=== PATIENT | female | born 1940 | race African-American/Black ===

== ENCOUNTER 2017-10-13 17:01 | Inpatient (IN) | payer MEDICARE, BC ==
[~2017-10-13] VITALS: Ht 162.6 cm; Wt 72.6 kg
[2017-10-13] MEDS ORDERED: Sodium Chloride 500ML 500 ML IV ONE (17:21)
[2017-10-13 17:22] VITALS: BP 162/66
[2017-10-13] MEDS ORDERED: AMLODIPINE BESYL5 MG ORAL (17:25)
[2017-10-13] MEDS ORDERED: MELOXICAM7.5 MG PO (17:25)
[2017-10-13] MEDS ORDERED: METOPROLOL SUCC50 MG ORAL (17:25)
[2017-10-13] MEDS ORDERED: TRESIBA FL200 UNIT/1 SQ (17:25)
[2017-10-13] MEDS ORDERED: NAMENDA XR28 MG PO (17:25)
[2017-10-13] MEDS ORDERED: ASPIRIN325 MG ORAL (17:25)
[2017-10-13] MEDS ORDERED: CEREFOLIN TABL1 EACH PO (17:25)
[2017-10-13] MEDS ORDERED: LIPITOR10 MG ORAL (17:25)
[2017-10-13] MEDS ORDERED: UNOBMED (17:25)
[2017-10-13] MEDS ORDERED: NESINA25 MG PO (17:25)
[2017-10-13] MEDS ORDERED: Morphine Sulfate 2mg/ml Inj IVP ONE (17:30)
[2017-10-13 18:00] VITALS: BP 146/53
[2017-10-13 18:09] LABS: BASOPHILS % (AUTO) 1.2 % (0.0-2.0); EOSINOPHILS % (AUTO) 2.5 % (0.0-3.0); HEMATOCRIT 36.2 % (37.0-47.0); LYMPHOCYTES % (AUTO) 30.2 % (20.0-45.0); MEAN CORPUSCULAR VOLUME 92 FL (80-99); MONOCYTES % (AUTO) 9.7 % (1.0-10.0); NEUTROPHILS % (AUTO) 56.4 % (45.0-75.0); PLATELET COUNT 200 K/UL (150-450); RED BLOOD COUNT 3.95 M/UL (4.20-5.40); RED CELL DISTRIBUTION WIDTH 11.8 % (11.6-14.8); WHITE BLOOD COUNT 7.1 K/UL (4.8-10.8)
[2017-10-13 18:14] LABS: APPEARANCE,URINE SLIGHTLY CLOUDY; BILIRUBIN, URINE NEGATIVE (NEGATIVE); COLOR,URINE PALE YELLOW; GLUCOSE, URINE (UA) NEGATIVE (NEGATIVE); KETONES,URINE NEGATIVE (NEGATIVE); LEUKOCYTE ESTERASE ,URINE NEGATIVE (NEGATIVE); NITRITE,URINE POSITIVE (NEGATIVE); PH,URINE 7 (4.5-8.0); PROTEIN,URINE NEGATIVE (NEGATIVE); UROBILINOGEN,URINE NORMAL MG/DL (0.0-1.0)
[2017-10-13 18:21] LABS: ANION GAP 7 mmol/L (5-15); BLOOD UREA NITROGEN 34 mg/dL (7-18); CALCIUM 10.5 MG/DL (8.5-10.1); CARBON DIOXIDE 30 MMOL/L (21-32); CHLORIDE 104 MMOL/L (98-107); POTASSIUM 4.6 MMOL/L (3.5-5.1); SODIUM 141 MMOL/L (136-145)
[2017-10-13 18:34] LABS: ALANINE AMINOTRANSFERASE 27 U/L (12-78); ALBUMIN 3.8 G/DL (3.4-5.0); ALKALINE PHOSPHATASE 74 U/L (46-116); ASPARTATE AMINO TRANSFERASE 26 U/L (15-37); BILIRUBIN,TOTAL 0.2 MG/DL (0.2-1.0); CKMB 3.1 NG/ML (0.0-3.6); CREATINE KINASE 150 U/L (26-308)
[2017-10-13 19:00] VITALS: BP 143/55
--- NOTE | 2017-10-13 19:09 | Emergency Room Report ---
History of Present Illness General Chief Complaint: Chest Pain Source: Patient, Family Member, Medical Record Present Illness HPI 77-year-old female presents to ED for evaluation. Per EMS patient complaining of chest pain. Patient comes from [facility]. Patient noting chest pain which started yesterday also complaining of back pain. Chest pain was left-sided, sharp, 7/10, nonradiating. Also complaining of lower back pain to the right. Per EMS patient was denying any chest pain during assessment. Was given aspirin. Denies any chest pain here. Ex- at bedside states that patient was recently discharged from [facility] for similar chest pain complaint. Admitted for overnight observation. Denies shortness of breath. Denies cough. Denies fevers or chills. No other aggravating relieving factors. Denies any other associated symptoms Allergies: Coded Allergies: No Known Allergies (Unverified , 10/13/17) Patient History Past Medical History: none, DM, HTN, dementia Past Surgical History: none, pacemaker Pertinent Family History: none Social History: Denies: smoking, alcohol use, drug use Now: No Immunizations: UTD Reviewed Nursing Documentation: PMH: Agreed, PSxH: Agreed Nursing Documentation-PMH Past Medical History: No History, Except For Hx Cardiac Problems: Yes - Alzheimer's disease Hx Hypertension: Yes Hx Pacemaker: Yes Hx Diabetes: Yes Review of Systems All Other Systems: negative except mentioned in HPI Physical Exam Vital Signs Date Time Temp Pulse Resp B/P (MAP) Pulse Ox O2 Delivery O2 Flow Rate FiO2 10/13/17 17:09 97.1 80 16 220/110 97 Room Air 97.2 Sp02 EP Interpretation: reviewed, normal General Appearance: no apparent distress, alert, GCS 15, non-toxic Head: normocephalic, atraumatic Eyes: bilateral eye normal inspection, bilateral eye PERRL ENT: hearing grossly normal, normal pharynx, no angioedema, normal voice Neck: full range of motion, supple/symm/no masses Respiratory: chest non-tender, lungs clear, normal breath sounds, speaking full sentences Cardiovascular #1: regular rate, rhythm, no edema Cardiovascular #2: 2+ carotid (R), 2+ carotid (L), 2+ radial (R), 2+ radial (L) , 2+ dorsalis pedis (R), 2+ dorsalis pedis (L) Gastrointestinal: normal bowel sounds, non tender, soft, non-distended, no guarding, no rebound Rectal: deferred Genitourinary: normal inspection, no CVA tenderness Musculoskeletal: back normal, gait/station normal, normal range of motion, non- tender Neurologic: alert, oriented x3, responsive, motor strength/tone normal, sensory intact, speech normal Psychiatric: judgement/insight normal, memory normal, mood/affect normal, no suicidal/homicidal ideation Reflexes: 3+ bicep (R), 3+ bicep (L), 3+ tricep (R), 3+ tricep (L), 3+ knee (R) , 3+ knee (L) Skin: normal color, no rash, warm/dry, well hydrated Lymphatic: no adenopathy Medical Decision Making Diagnostic Impression: Primary Impression: ACS (acute coronary syndrome) Additional Impression: UTI (urinary tract infection) Qualified Codes: N39.0 - Urinary tract infection, site not specified ER Course Hospital Course 77-year-old female presents ED complaining of chest pain. Resolved upon arrival Differential diagnoses include: WI/unstable angina, contusion, muscle strain, PTX, rib fracture Clinical course Patient placed on stretcher. on ruling technician. After initial history and physical I ordered labs, EKG, chest x-ray labs reviewed- no leukcytosis, hb/hct stable, electrolytes ok, trop negative, UA + bacteria EKG - atrial paced, no acute ischemic changes interpreted by me Chest x-ray- no acute process, pacemaker Antibiotics given. discussed findings with patient and family. The pain does appear muscular. Patient was admitted proximately tended to [facility] for ACS rule out. However patient has significant risk factors I believe should be admitted for ACS rule out Case discussed with Dr. Lloyd and he agreed to accept the patient to his service for further care and support I. I feel this is a highly complex case requiring extensive working including EKG/Rhythm strip, Xray/CT/US, Blood/urine lab work, repeat exams while in ED, and administration of strong opiates/narcotics for pain control, admission to hospital or close patient follow up. Diagnosis - ACS, UTI admitted to telemetry in serious condition Labs Test 10/13/17 17:55 White Blood Count 7.1 K/UL (4.8-10.8) Red Blood Count 3.95 M/UL (4.20-5.40) Hemoglobin 12.0 G/DL (12.0-16.0) Hematocrit 36.2 % (37.0-47.0) Mean Corpuscular Volume 92 FL (80-99) Mean Corpuscular Hemoglobin 30.4 PG (27.0-31.0) Mean Corpuscular Hemoglobin Concent 33.1 G/DL (32.0-36.0) Red Cell Distribution Width 11.8 % (11.6-14.8) Platelet Count 200 K/UL (150-450) Mean Platelet Volume 10.2 FL (6.5-10.1) Neutrophils (%) (Auto) 56.4 % (45.0-75.0) Lymphocytes (%) (Auto) 30.2 % (20.0-45.0) Monocytes (%) (Auto) 9.7 % (1.0-10.0) Eosinophils (%) (Auto) 2.5 % (0.0-3.0) Basophils (%) (Auto) 1.2 % (0.0-2.0) Urine Color Pale yellow Urine Appearance Slightly cloudy Urine pH 7 (4.5-8.0) Urine Specific [place] 1.010 (1.005-1.035) Urine Protein Negative (NEGATIVE) Urine Glucose (UA) Negative (NEGATIVE) Urine Ketones Negative (NEGATIVE) Urine Occult Blood Negative (NEGATIVE) Urine Nitrite Positive (NEGATIVE) Urine Bilirubin Negative (NEGATIVE) Urine Urobilinogen Normal MG/DL (0.0-1.0) Urine Leukocyte Esterase Negative (NEGATIVE) Urine RBC 0-2 /HPF (0 - 2) Urine WBC 0-2 /HPF (0 - 2) Urine Squamous Epithelial Cells Few /LPF (NONE/OCC) Urine Bacteria Many /HPF (NONE) Sodium Level 141 MMOL/L (136-145) Potassium Level 4.6 MMOL/L (3.5-5.1) Chloride Level 104 MMOL/L (98-107) Carbon Dioxide Level 30 MMOL/L (21-32) Anion Gap 7 mmol/L (5-15) Blood Urea Nitrogen 34 mg/dL (7-18) Creatinine 1.0 MG/DL (0.55-1.30) Estimat Glomerular Filtration Rate mL/min (>60) Glucose Level 145 MG/DL (74-106) Calcium Level 10.5 MG/DL (8.5-10.1) Total Bilirubin 0.2 MG/DL (0.2-1.0) Aspartate Amino Transf (AST/SGOT) 26 U/L (15-37) Alanine Aminotransferase (ALT/SGPT) 27 U/L (12-78) Alkaline Phosphatase 74 U/L (46-116) Total Creatine Kinase 150 U/L (26-308) Creatine Kinase MB 3.1 NG/ML (0.0-3.6) Creatine Kinase MB Relative Index 2.0 Troponin I 0.000 ng/mL (0.000-0.056) Pro-B-Type Natriuretic Peptide 90 pg/mL (0-125) Total Protein 7.6 G/DL (6.4-8.2) Albumin 3.8 G/DL (3.4-5.0) Globulin 3.8 g/dL Albumin/Globulin Ratio 1.0 (1.0-2.7) EKG Diagnostic Results Rate: normal Rhythm: other - paced rhythm ST Segments: no acute changes ASA given to the pt in ED: No - given by ems Rhythm Strip Diag. Results EP Interpretation: yes Rhythm: no PVC's, no ectopy, other - atrial paced Chest X-Ray Diagnostic Results Chest X-Ray Diagnostic Results : Chest X-Ray Ordered: Yes # of Views/Limited/Complete: 1 View Indication: Chest Pain EP Interpretation: Yes Interpretation: no consolidation, no effusion, no pneumothorax, no acute cardiopulmonary disease, other - pacemaker Impression: No acute disease Last Vital Signs Date Time Temp Pulse Resp B/P (MAP) Pulse Ox O2 Delivery O2 Flow Rate FiO2 10/13/17 18:30 97.9 10/13/17 18:00 64 12 146/53 100 Room Air Status: improved Disposition: ADMITTED INPATIENT Condition: Serious Referrals: NON PHYSICIAN (PCP) YAS GARCIA M.D. Oct 13, 2017 19:09
[2017-10-13] MEDS ORDERED: Albuterol/Ipratropium 3ml neb HHN PRN (19:15)
[2017-10-13] MEDS ORDERED: Morphine Sulfate 2mg/ml Inj IVP PRN (19:15)
[2017-10-13] MEDS ORDERED: Miralax 17gm pkt ORAL PRN (19:15)
[2017-10-13] MEDS ORDERED: dilTIAZem HCl 25mg/5ml Inj IV PRN (19:15)
[2017-10-13] MEDS ORDERED: Enalaprilat 2.5mg/2ml Inj IV PRN (19:15)
[2017-10-13] MEDS ORDERED: Ketorolac 30mg Inj IV PRN (19:15)
[2017-10-13] MEDS ORDERED: Nitroglycerin Subl 0.4mg tab SL PRN (19:30)
[2017-10-13 20:05] VITALS: BP 133/61
[2017-10-13] MEDS: NovoLOG Insulin Flexpen SUBQ SCH (21:00)
[2017-10-13] MEDS: Heparin 5000 units/ml inj SUBQ SCH (22:05)
[2017-10-14] VITALS: BP 140/60
[2017-10-14 04:00] VITALS: BP 127/61
[2017-10-14] MEDS: NovoLOG Insulin Flexpen SUBQ SCH ×4 (06:11→21:00)
[2017-10-14] MEDS: Heparin 5000 units/ml inj SUBQ SCH ×3 (06:20→22:06)
[2017-10-14 08:00] VITALS: BP 153/66
--- NOTE | 2017-10-14 08:33 | Diagnostic Imaging Report ---
Indication: Chest pain Technique: One view of the chest Comparison: none Findings: The lungs and pleural spaces are clear. There is a left chest pacemaker. Normal heart size Impression: No acute process
[2017-10-14] MEDS: Aspirin Baby 81mg ORAL SCH (08:47)
[2017-10-14] MEDS: Metoprolol Succinate XL 50mg tab ORAL SCH (08:48)
[2017-10-14 08:55] LABS: EOSINOPHILS % (AUTO) 2.4 % (0.0-3.0); HEMATOCRIT 32.7 % (37.0-47.0); HEMOGLOBIN 10.9 G/DL (12.0-16.0); LYMPHOCYTES % (AUTO) 28.8 % (20.0-45.0); MEAN CORPUSCULAR VOLUME 92 FL (80-99); MONOCYTES % (AUTO) 7.1 % (1.0-10.0); NEUTROPHILS % (AUTO) 60.8 % (45.0-75.0); PLATELET COUNT 205 K/UL (150-450); RED BLOOD COUNT 3.55 M/UL (4.20-5.40); WHITE BLOOD COUNT 6.1 K/UL (4.8-10.8)
[2017-10-14 09:17] LABS: CHOLESTEROL 98 MG/DL (< 200); HDL CHOLESTEROL 55 MG/DL (40-60); TRIGLYCERIDES < 15 MG/DL (30-150)
[2017-10-14] MEDS ORDERED: ALPRAZOLAM0.025 GM MC (10:30)
[2017-10-14 12:00] VITALS: BP 120/56
[2017-10-14] MEDS ORDERED: Nitroglycerin Subl 0.4mg tab SL PRN (12:45)
--- NOTE | 2017-10-14 12:58 | History and Physical ---
History of Present Illness General Date patient seen: Oct 14, 2017 Time patient seen: 11:00 Reason for Hospitalization: Chest Pain Present Illness HPI 77 y/d female with PMH of DM, HTN< Alzheimer dementia, presented with chest and lower right sided back pain Chest pain started a day before, left-sided, sharp, 7/10, nonradiating. Also complaining of lower back pain to the right, more [place] flank pain. Patient was given aspirin by paramedics . Ex- at bedside states that patient was recently discharged from [facility] for similar chest pain complaint, where she was admitted for overnight observation. Denies shortness of breath. Denies cough, congestion Denies fevers or chills. Workup in ED revealed stable VS troponin negative ECG with AV pacing, no acute ischemic changes CXR no acute CP pathology, + evidence of pacemaker UA with evidence of UTI patient was admitted with CP r/o ACS, UTI Allergies: Coded Allergies: No Known Allergies (Unverified , 10/13/17) Medication History Scheduled Alogliptin Benzoate (Nesina), 25 MG PO DAILY, (Reported) Amlodipine Besylate* (Amlodipine Besylate*), 5 MG ORAL BID, (Reported) Aspirin* (Aspirin*), 325 MG ORAL DAILY, (Reported) Atorvastatin Calcium* (Lipitor*), 10 MG ORAL DAILY, (Reported) Insulin Degludec (Tresiba Flextouch U-200), 12 UNIT SQ DAILY, (Reported) Meloxicam* (Meloxicam*), 7.5 MG PO BID, (Reported) Memantine Hcl (Namenda Xr), 28 MG PO DAILY, (Reported) Metoprolol Succinate* (Metoprolol Succinate*), 50 MG ORAL DAILY, (Reported) Vit B12/Lmefolate Ca/Vit B6/B2 (Cerefolin Tablet), 1 EACH PO DAILY, (Reported) Miscellaneous Medications Alprazolam (Alprazolam), 0.025 GM MC, (Reported) Patient History Healthcare decision maker N Resuscitation status Full Code Advanced Directive on File No Review of Systems Constitutional: Reports: weakness Eye: Reports: no symptoms ENT: Reports: no symptoms Respiratory: Reports: no symptoms Cardiovascular: Reports: see HPI, other - HTN Gastrointestinal: Reports: no symptoms, constipation Genitourinary: Reports: frequency Musculoskeletal: Reports: back pain Psychiatric: Reports: other - Alzheimer dementia Endocrine: Reports: other - DM Physical Exam General Appearance: no apparent distress, alert Lines, tubes and drains: peripheral HEENT: normocephalic, atraumatic, anicteric Neck: non-tender, supple Respiratory/Chest: lungs clear, no respiratory distress, no accessory muscle use Cardiovascular/Chest: normal rate, regular rhythm - AV paced , no JVD, pacemaker/AICD - Left chest pacemaker Abdomen: normal bowel sounds, non tender, soft Extremities: non-tender, no calf tenderness Neurologic: alert, responsive Last 24 Hour Vital Signs Date Time Temp Pulse Resp B/P (MAP) Pulse Ox O2 Delivery O2 Flow Rate FiO2 10/14/17 08:48 59 153/66 10/14/17 08:47 59 153/66 10/14/17 08:00 60 10/14/17 08:00 97.0 59 20 153/66 100 97.0 10/14/17 04:00 97.9 59 19 127/61 98 97.9 10/14/17 03:53 60 10/14/17 00:00 97.7 63 20 140/60 99 Room Air 97.7 10/13/17 23:56 60 10/13/17 22:03 65 154/78 10/13/17 20:05 98.0 61 12 133/61 100 Room Air 98.0 10/13/17 19:39 97.9 62 12 143/55 100 Room Air 97.9 10/13/17 19:00 62 12 143/55 100 Room Air 10/13/17 18:30 97.9 10/13/17 18:00 64 12 146/53 100 Room Air 10/13/17 17:59 97.9 10/13/17 17:22 Room Air 10/13/17 17:22 97.9 74 16 162/66 98 Room Air 97.9 10/13/17 17:09 97.1 80 16 220/110 97 Room Air 97.2 Intake and Output 10/13/17 10/14/17 19:00 07:00 Intake Total 500 ml Output Total 100 ml Balance 400 ml Intake IV Total 500 ml Output Urine Total 100 ml # Voids 1 3 Laboratory Tests Test 10/13/17 17:55 10/14/17 08:05 White Blood Count 7.1 K/UL (4.8-10.8) 6.1 K/UL (4.8-10.8) Red Blood Count 3.95 M/UL (4.20-5.40) L 3.55 M/UL (4.20-5.40) L Hemoglobin 12.0 G/DL (12.0-16.0) 10.9 G/DL (12.0-16.0) L Hematocrit 36.2 % (37.0-47.0) L 32.7 % (37.0-47.0) L Mean Corpuscular Volume 92 FL (80-99) 92 FL (80-99) Mean Corpuscular Hemoglobin 30.4 PG (27.0-31.0) 30.7 PG (27.0-31.0) Mean Corpuscular Hemoglobin Concent 33.1 G/DL (32.0-36.0) 33.3 G/DL (32.0-36.0) Red Cell Distribution Width 11.8 % (11.6-14.8) 12.0 % (11.6-14.8) Platelet Count 200 K/UL (150-450) 205 K/UL (150-450) Mean Platelet Volume 10.2 FL (6.5-10.1) H 10.6 FL (6.5-10.1) H Neutrophils (%) (Auto) 56.4 % (45.0-75.0) 60.8 % (45.0-75.0) Lymphocytes (%) (Auto) 30.2 % (20.0-45.0) 28.8 % (20.0-45.0) Monocytes (%) (Auto) 9.7 % (1.0-10.0) 7.1 % (1.0-10.0) Eosinophils (%) (Auto) 2.5 % (0.0-3.0) 2.4 % (0.0-3.0) Basophils (%) (Auto) 1.2 % (0.0-2.0) 1.0 % (0.0-2.0) Urine Color Pale yellow Urine Appearance Slightly cloudy Urine pH 7 (4.5-8.0) Urine Specific [place] 1.010 (1.005-1.035) Urine Protein Negative (NEGATIVE) Urine Glucose (UA) Negative (NEGATIVE) Urine Ketones Negative (NEGATIVE) Urine Occult Blood Negative (NEGATIVE) Urine Nitrite Positive (NEGATIVE) H Urine Bilirubin Negative (NEGATIVE) Urine Urobilinogen Normal MG/DL (0.0-1.0) Urine Leukocyte Esterase Negative (NEGATIVE) Urine RBC 0-2 /HPF (0 - 2) Urine WBC 0-2 /HPF (0 - 2) Urine Squamous Epithelial Cells Few /LPF (NONE/OCC) Urine Bacteria Many /HPF (NONE) H Sodium Level 141 MMOL/L (136-145) Potassium Level 4.6 MMOL/L (3.5-5.1) Chloride Level 104 MMOL/L (98-107) Carbon Dioxide Level 30 MMOL/L (21-32) Anion Gap 7 mmol/L (5-15) Blood Urea Nitrogen 34 mg/dL (7-18) H Creatinine 1.0 MG/DL (0.55-1.30) Estimat Glomerular Filtration Rate mL/min (>60) Glucose Level 145 MG/DL (74-106) H Calcium Level 10.5 MG/DL (8.5-10.1) H Total Bilirubin 0.2 MG/DL (0.2-1.0) Aspartate Amino Transf (AST/SGOT) 26 U/L (15-37) Alanine Aminotransferase (ALT/SGPT) 27 U/L (12-78) Alkaline Phosphatase 74 U/L (46-116) Total Creatine Kinase 150 U/L (26-308) Creatine Kinase MB 3.1 NG/ML (0.0-3.6) Creatine Kinase MB Relative Index 2.0 Troponin I 0.000 ng/mL (0.000-0.056) 0.017 ng/mL (0.000-0.056) Pro-B-Type Natriuretic Peptide 90 pg/mL (0-125) Total Protein 7.6 G/DL (6.4-8.2) Albumin 3.8 G/DL (3.4-5.0) Globulin 3.8 g/dL Albumin/Globulin Ratio 1.0 (1.0-2.7) Prothrombin Time 10.1 SEC (9.30-11.50) Prothromb Time International Ratio 1.0 (0.9-1.1) Activated Partial Thromboplast Time 28 SEC (23-33) C-Reactive Protein, Quantitative 0.6 mg/dL (0.00-0.90) Triglycerides Level < 15 MG/DL (30-150) L Cholesterol Level 98 MG/DL (< 200) LDL Cholesterol 45 mg/dL (<100) HDL Cholesterol 55 MG/DL (40-60) Cholesterol/HDL Ratio 1.8 (3.3-4.4) L Thyroid Stimulating Hormone (TSH) 1.179 uiU/mL (0.358-3.740) Microbiology Date/Time Source Procedure Growth Status 10/13/17 17:55 Urine,Clean Catch Urine Culture - Preliminary Gram Negative Bacillus 1 Resulted Height (Feet): 5 Height (Inches): 4.00 Weight (Pounds): 160 Medications Current Medications Medications (Trade) Dose Ordered Sig/Joel Route PRN Reason Start Time Stop Time Status Last Admin Dose Admin Acetaminophen (Tylenol) 650 mg Q4H PRN ORAL FEVER 10/13/17 19:15 11/12/17 19:14 Albuterol/ Ipratropium (Albuterol/ Ipratropium) 3 ml EVERY 4 HOURS PRN HHN Shortness of Breath 10/13/17 19:15 10/18/17 19:14 Amlodipine Besylate (Norvasc) 5 mg Q12HR ORAL 10/13/17 21:00 11/12/17 20:59 10/14/17 08:47 Aspirin (ASA) 162 mg DAILY ORAL 10/14/17 09:00 11/13/17 08:59 10/14/17 08:47 Dextrose (Dextrose 50%) STAT PRN IV Hypoglycemia 10/13/17 19:15 11/12/17 19:14 Diltiazem HCl (Cardizem) 10 mg EVERY HOUR PRN IV heart rate more than 120, 10/13/17 19:15 11/12/17 19:14 Enalaprilat (Vasotec) 2.5 mg EVERY 6 HOURS PRN IV sbp more than 160 10/13/17 19:15 11/12/17 19:14 Heparin Sodium (Porcine) (Heparin 5000 units/ml) 5,000 units EVERY 8 HOURS SUBQ 10/13/17 22:00 11/12/17 21:59 10/14/17 06:20 Insulin Aspart (NovoLOG) BEFORE MEALS AND HS SUBQ 10/13/17 21:00 11/12/17 20:59 10/14/17 12:18 Ketorolac Tromethamine (Toradol 30mg) 30 mg Q6HR PRN IV moderate pain ( 4-6) 10/13/17 19:15 10/18/17 19:14 Metoprolol Succinate (Toprol XL) 50 mg DAILY ORAL 10/14/17 09:00 11/13/17 08:59 10/14/17 08:48 Morphine Sulfate (Morphine Sulfate) 2 mg EVERY 4 HOURS PRN IVP severe Pain (Pain Scale 7-10) 10/13/17 19:15 10/20/17 19:14 Nitroglycerin (Ntg) 0.4 mg Q5MIN X 3 DOSES PRN SL Prn Chest Pain 10/13/17 19:30 11/12/17 19:29 Ondansetron HCl (Zofran) 4 mg Q6H PRN IVP Nausea & Vomiting 10/13/17 19:15 11/12/17 19:14 Pantoprazole (Protonix) 40 mg DAILY ORAL 10/14/17 09:00 11/13/17 08:59 10/14/17 08:47 Polyethylene Glycol (Miralax) 17 gm DAILYPRN PRN ORAL Constipation 10/13/17 19:15 11/12/17 19:14 Temazepam (Restoril) 15 mg HSPRN PRN ORAL Insomnia 10/13/17 19:15 10/20/17 19:14 Assessment/Plan Assessment/Plan ASSESSMENT chest pain r/o ACS HTN urgency DM pacemaker UTI with GNB Alzheimer dementia PLAN OF CARE tele serial troponin ( first two negative) ECG with AV pacing, no acute ischemic changes ECHO with pEF 55-60% and RVSP of 28 cardio eval pending ASA BB lipid panel stable TSH WNL BP management with BB and CCB optimize further as needed BS management with SS of insulin pain management Morphine, Nitro prn DVT GI prophylaxis bowel regimen abx fup with final urine cx ; urine cx + GNB case discussed and evaluated by supervising physician Javier Ventura)Adrienne NP Oct 14, 2017 12:58
--- NOTE | 2017-10-14 15:04 | Cardiology Report ---
APPROVED REPORT EKG Measurement Heart [id number] Abnormal ECG Dual-Chamber Pacemaker. 100% V paced beats
[2017-10-14] MEDS: cefTRIAXone 1 GM in NS 55 ML IVPB SCH (15:36)
[2017-10-14 16:00] VITALS: BP 143/61
--- NOTE | 2017-10-14 16:15 | Cardiology Report ---
APPROVED REPORT EXAM: Two-dimensional and M-mode echocardiogram with Doppler and color Doppler. INDICATION Left ventricular function M-Mode DIMENSIONS IVSd0.7 (0.7-1.1cm)Left Atrium (MM)2.6 (1.6-4.0cm) LVDd3.9 (3.5-5.6cm)Aortic Root2.4 (2.0-3.7cm) PWd0.8 (0.7-1.1cm)Aortic Cusp Exc.1.5 (1.5-2.0cm) LVDs2.0 (2.5-4.0cm) PWs1.0 cm Normal left ventricular chamber size, systolic function and wall motion. Left ventricular ejection fraction estimated to be 55-60%. No evidence of left ventricular hypertrophy. No evidence of pericardial or pleural effusion. All other cardiac chamber sizes are within normal limits. Focal aortic valve sclerosis with adequate cusp excursion. Normal mitral valve leaflets with normal excursion. Mild mitral annulus and aortic root calcification. Pulmonic valve not well visualized. Normal tricuspid valve structure. IVC is normal in size and collapsible with respiration. Probable pacemaker wire present in the right side chambers. A color flow and spectral Doppler study was performed and revealed: No aortic regurgitation. Mild mitral regurgitation. Mitral diastolic velocities suggest reduced left ventricular relaxation c/w diastolic dysfunction grade 1. Mild tricuspid regurgitation. Tricuspid systolic velocities suggests peak right ventricular systolic pressure of 28 mmHg
[2017-10-14 20:00] VITALS: BP 128/59
[2017-10-15] VITALS: BP 135/65
[2017-10-15 04:00] VITALS: BP 133/64
[2017-10-15] MEDS: Heparin 5000 units/ml inj SUBQ SCH ×3 (06:00→21:30)
[2017-10-15] MEDS: NovoLOG Insulin Flexpen SUBQ SCH ×4 (06:30→21:29)
[2017-10-15 09:00] VITALS: BP 127/57
[2017-10-15] MEDS: Aspirin Baby 81mg ORAL SCH (09:54)
[2017-10-15] MEDS: Metoprolol Succinate XL 50mg tab ORAL SCH (09:55)
[2017-10-15 12:00] VITALS: BP 124/50
--- NOTE | 2017-10-15 13:24 | Pulmonology Progress Note ---
Assessment/Plan Problems: (1) UTI (urinary tract infection) (2) Alzheimer's dementia (3) ACS (acute coronary syndrome) Assessment/Plan check urine cultures echo reviewed cardio consult pending Subjective ROS Limited/Unobtainable: No Constitutional: Reports: no symptoms HEENT: Repors: no symptoms Respiratory: Reports: no symptoms Allergies: Coded Allergies: No Known Allergies (Unverified , 10/13/17) Objective Last 24 Hour Vital Signs Date Time Temp Pulse Resp B/P (MAP) Pulse Ox O2 Delivery O2 Flow Rate FiO2 10/15/17 09:55 62 127/57 10/15/17 09:55 62 127/57 10/15/17 09:00 98.1 62 18 127/57 98 Room Air 98.1 10/15/17 08:02 66 18 Room Air 21 10/15/17 04:00 60 10/15/17 04:00 97.3 60 20 133/64 97.3 10/15/17 00:00 98.6 71 20 135/65 97 Room Air 98.6 10/15/17 00:00 60 10/14/17 21:00 66 128/59 10/14/17 20:00 68 10/14/17 20:00 97.0 66 20 128/59 96 Room Air 97.0 10/14/17 19:30 64 20 Room Air 21 10/14/17 16:00 98.1 65 20 143/61 96 Room Air 98.1 10/14/17 16:00 64 Intake and Output 10/14/17 10/15/17 19:00 07:00 Intake Total 472 ml 236 ml Output Total 1850 ml Balance 472 ml -1614 ml Intake Oral 472 ml 236 ml Output Urine Total 1850 ml # Voids 2 6 # Bowel Movements 1 1 General Appearance: WD/WN HEENT: normocephalic, atraumatic Respiratory/Chest: chest wall non-tender, lungs clear Breasts: no masses Cardiovascular: normal peripheral pulses Abdomen: normal bowel sounds, soft, non tender Genitourinary: normal external genitalia Extremities: no cyanosis Skin: no rash, no ulcers Neurologic/Psychiatric: no motor/sensory deficits, alert, normal mood/affect Lymphatic: no groin adenopathy Microbiology Date/Time Source Procedure Growth Status 10/13/17 17:55 Urine,Clean Catch Urine Culture - Preliminary Gram Negative Bacillus 1 Resulted Current Medications Medications (Trade) Dose Ordered Sig/Joel Route PRN Reason Start Time Stop Time Status Last Admin Dose Admin Acetaminophen (Tylenol) 650 mg Q4H PRN ORAL FEVER 10/13/17 19:15 11/12/17 19:14 Albuterol/ Ipratropium (Albuterol/ Ipratropium) 3 ml EVERY 4 HOURS PRN HHN Shortness of Breath 10/13/17 19:15 10/18/17 19:14 Amlodipine Besylate (Norvasc) 5 mg Q12HR ORAL 10/13/17 21:00 11/12/17 20:59 10/15/17 09:55 Aspirin (ASA) 162 mg DAILY ORAL 10/14/17 09:00 11/13/17 08:59 10/15/17 09:54 Ceftriaxone Sodium 1 gm/ Sodium Chloride 55 ml @ 110 mls/hr Q24H IVPB 10/14/17 14:00 10/21/17 13:59 10/14/17 15:36 Dextrose (Dextrose 50%) STAT PRN IV Hypoglycemia 10/13/17 19:15 11/12/17 19:14 Diltiazem HCl (Cardizem) 10 mg EVERY HOUR PRN IV heart rate more than 120, 10/13/17 19:15 11/12/17 19:14 Enalaprilat (Vasotec) 2.5 mg EVERY 6 HOURS PRN IV sbp more than 160 10/13/17 19:15 11/12/17 19:14 Heparin Sodium (Porcine) (Heparin 5000 units/ml) 5,000 units EVERY 8 HOURS SUBQ 10/13/17 22:00 11/12/17 21:59 10/15/17 06:00 Insulin Aspart (NovoLOG) BEFORE MEALS AND HS SUBQ 10/13/17 21:00 11/12/17 20:59 10/15/17 12:24 Ketorolac Tromethamine (Toradol 30mg) 30 mg Q6HR PRN IV moderate pain ( 4-6) 10/13/17 19:15 10/18/17 19:14 Metoprolol Succinate (Toprol XL) 50 mg DAILY ORAL 10/14/17 09:00 11/13/17 08:59 10/15/17 09:55 Morphine Sulfate (Morphine Sulfate) 2 mg EVERY 4 HOURS PRN IVP severe Pain (Pain Scale 7-10) 10/13/17 19:15 10/20/17 19:14 10/15/17 07:18 Nitroglycerin (Ntg) 0.4 mg Q5MIN X 3 DOSES PRN SL Prn Chest Pain 10/13/17 19:30 11/12/17 19:29 Ondansetron HCl (Zofran) 4 mg Q6H PRN IVP Nausea & Vomiting 10/13/17 19:15 11/12/17 19:14 Pantoprazole (Protonix) 40 mg DAILY ORAL 10/14/17 09:00 11/13/17 08:59 10/15/17 09:54 Polyethylene Glycol (Miralax) 17 gm DAILYPRN PRN ORAL Constipation 10/13/17 19:15 11/12/17 19:14 Temazepam (Restoril) 15 mg HSPRN PRN ORAL Insomnia 10/13/17 19:15 10/20/17 19:14 BRITTANY IRIZARRY Oct 15, 2017 13:24
[2017-10-15] MEDS: cefTRIAXone 1 GM in NS 55 ML IVPB SCH (14:43)
[2017-10-15] MEDS ORDERED: NS 275ml ONE (15:32)
[2017-10-15] MEDS ORDERED: Tubing IV Secondary IV ONE (15:32)
[2017-10-15] MEDS: Levofloxacin 250mg/D5W 50ml IVPB SCH ×2 (15:51→16:11)
[2017-10-15 16:00] VITALS: BP 134/55
--- NOTE | 2017-10-15 16:18 | Cardiology Progress Note ---
Assessment/Plan Assessment/Plan [id number] Objective Last 24 Hour Vital Signs Date Time Temp Pulse Resp B/P (MAP) Pulse Ox O2 Delivery O2 Flow Rate FiO2 10/15/17 12:00 98.4 60 18 124/50 99 Room Air 98.4 10/15/17 12:00 60 10/15/17 09:55 62 127/57 10/15/17 09:55 62 127/57 10/15/17 09:00 98.1 62 18 127/57 98 Room Air 98.1 10/15/17 08:02 66 18 Room Air 21 10/15/17 08:00 63 10/15/17 04:00 60 10/15/17 04:00 97.3 60 20 133/64 97.3 10/15/17 00:00 98.6 71 20 135/65 97 Room Air 98.6 10/15/17 00:00 60 10/14/17 21:00 66 128/59 10/14/17 20:00 68 10/14/17 20:00 97.0 66 20 128/59 96 Room Air 97.0 10/14/17 19:30 64 20 Room Air 21 Intake and Output 10/14/17 10/15/17 19:00 07:00 Intake Total 472 ml 236 ml Output Total 1850 ml Balance 472 ml -1614 ml Intake Oral 472 ml 236 ml Output Urine Total 1850 ml # Voids 2 6 # Bowel Movements 1 1 Microbiology Date/Time Source Procedure Growth Status 10/13/17 17:55 Urine,Clean Catch Urine Culture - Preliminary Gram Negative Bacillus 1 Resulted VENITA SOTELO Oct 15, 2017 16:18
[2017-10-15 20:00] VITALS: BP 142/72
[2017-10-16] VITALS: BP 140/70
[2017-10-16 04:00] VITALS: BP 128/68
--- NOTE | 2017-10-16 04:00 | Consultation ---
DATE OF CONSULTATION: 10/15/2017 CARDIOLOGY CONSULTATION CONSULTING PHYSICIAN: Yonatan Yusuf M.D. REFERRING PHYSICIAN: Shell Lloyd M.D. REASON FOR REFERRAL: Chest pain. HISTORY OF PRESENT ILLNESS: This is an elderly female, who is a resident of a convalescent facility. Apparently, the patient was recently at [facility] not too long ago. She was discharged on 10/05/2017 for episodes of chest pain that she was hospitalized there. She was seen at [facility] with manager documentation and eventually her own environmental monitoring technician saw her at that time, felt that the pain was related to musculoskeletal. The patient was discharged back to the convalescent facility and she even followed up, as I understand, with the environmental monitoring technician, Dr. Orlin Dodd in the office in the past few days. She comes in because of basically same pain that she had before, but also pain in her lower back that radiates down her left leg. She tells me left leg, the emergency room physician noticed right leg, a note to EMS. Per EMS, the patient was denying any chest pain during their assessment. The patient was given some aspirin though. She denied any chest pain to the emergency room physician and she denies any chest pain to me at this time after her initial pre-admission chest pains. She has had a difficult time to explain. She thinks that she has some problem with the swallowing of food. Nevertheless, she does not have any PND. No orthopnea. No palpitations. She does walk some. She does not get chest pain with ambulation and she is chest pain free at the present time. PAST MEDICAL HISTORY: According to the [facility] records is history of recent left-sided chest pain, felt to be musculoskeletal and noncardiac, essential hypertension, diabetes mellitus, COPD, dementia, nephrolithiasis, and permanent pacemaker implantation. She has had a cystoscopy, ureteroscopy, ureteral stent placement, history of permanent pacemaker implantation in 2014, tonsillectomy. ALLERGIES: She is allergic to cat and pollen. She denies any allergies to medications here. SOCIAL HISTORY: She does not have a history of smoking or alcohol. She lives at [facility] at this time apparently and she is ambulatory at the facility. REVIEW OF SYSTEMS: GASTROINTESTINAL: She denies. GENITOURINARY: She denies. PULMONARY: She denies. CONSTITUTIONAL: She denies. NEUROLOGIC: She feels that there is some fogginess to her head that she thinks is related to her brain. PHYSICAL EXAMINATION: GENERAL: Shows to be elderly female, rather slow to communicate, but does communicate. NECK: Supple. No jugular venous distention. LUNGS: Clear to auscultation and percussion. CARDIAC: S1 is normal. S2 is normal. Regular rate and rhythm. No heaves. No thrills. No gallops. No rubs are noted. ABDOMEN: Soft and nontender. Positive bowel sounds. EXTREMITIES: There is no clubbing, cyanosis, nor is there any edema. NEUROLOGICAL: She is awake, alert, and responsive. Chest wall is tender and seems to be reproducing the pain that she has been experiencing since before. LABORATORY AND DIAGNOSTIC DATA: Her white count is 6.1, hemoglobin 10.9, and platelet count of 205. Sodium is 141, potassium 4.2, chloride 104, bicarb 30, BUN of 34, creatinine 1.0, glucose of 145, and calcium 10.5. Troponins are negative. Pro-natriuretic peptide is only 90 and triglycerides are less than 15 with a total cholesterol of 98, LDL of 45, and HDL of 55. TSH of 1.79. INR of 1. PTT of 28. Urinalysis is fairly unremarkable. Her chest x-ray showed no acute processes. She had a venous duplex study of the lower extremities that showed deep venous system patent bilaterally. No evidence of thrombus within the vessels. She had an echocardiogram that showed an ejection fraction of 55% to 60%. Normal function and wall motion by the pacemaker wire noted in the right side. No significant valvular regurgitation or mild diastolic relaxation abnormality. No other significant abnormality. Her electrocardiogram showed sinus rhythm with ventricular paced rhythm and a direct comparison with my records does not appear to be any change. ASSESSMENT AND PLAN: 1. Musculoskeletal chest pain. 2. History of hypertension. 3. Diabetes mellitus. 4. History of permanent pacemaker implantation. 5. History of dementia. Dr. Lloyd, this patient was seen in cardiac consultation. The patient's cardiac enzymes are all negative. She does not have any chest pain at this time. She has chest wall tenderness on palpation that seems to reproduce her pain. Her wall motion on the echocardiogram is negative. A chest x-ray is negative. Her EKG is paced, but appears not to be changed. I do not see any reason for her to have any more further cardiac workup as an inpatient. She is supposed to follow up with her own environmental monitoring technician, Dr. Orlin Dodd as is scheduled. The patient is concerned about the possibility of a fogginess that may be caused by her brain. Her vital signs appeared to be quite normal with blood pressure most recently 127/57 with heart rate of 62 and temperature 98.4 degrees. From a cardiac point of view, she can be discharged when appropriate as per yourself. Yonatan Yusuf M.D. DR: Adriana JOB#: [id number] CC:
[2017-10-16] MEDS: Heparin 5000 units/ml inj SUBQ SCH ×2 (06:23→12:58)
[2017-10-16] MEDS: NovoLOG Insulin Flexpen SUBQ SCH ×3 (06:30→16:23)
[2017-10-16] MEDS: Aspirin Baby 81mg ORAL SCH (08:01)
[2017-10-16] MEDS: Metoprolol Succinate XL 50mg tab ORAL SCH (08:02)
[2017-10-16 08:11] LABS: BASOPHILS % (AUTO) 0.8 % (0.0-2.0); EOSINOPHILS % (AUTO) 2.5 % (0.0-3.0); HEMATOCRIT 35.1 % (37.0-47.0); HEMOGLOBIN 11.7 G/DL (12.0-16.0); LYMPHOCYTES % (AUTO) 29.7 % (20.0-45.0); MEAN CORPUSCULAR VOLUME 93 FL (80-99); MONOCYTES % (AUTO) 6.6 % (1.0-10.0); NEUTROPHILS % (AUTO) 60.4 % (45.0-75.0); PLATELET COUNT 218 K/UL (150-450); RED BLOOD COUNT 3.79 M/UL (4.20-5.40); RED CELL DISTRIBUTION WIDTH 11.9 % (11.6-14.8); WHITE BLOOD COUNT 7.2 K/UL (4.8-10.8)
[2017-10-16 08:28] LABS: ALANINE AMINOTRANSFERASE 21 U/L (12-78); ALBUMIN 3.3 G/DL (3.4-5.0); ALBUMIN/GLOBULIN RATIO 0.9 (1.0-2.7); ALKALINE PHOSPHATASE 54 U/L (46-116); ANION GAP 8 mmol/L (5-15); ASPARTATE AMINO TRANSFERASE 19 U/L (15-37); BILIRUBIN,TOTAL 0.4 MG/DL (0.2-1.0); BLOOD UREA NITROGEN 23 mg/dL (7-18); CALCIUM 9.9 MG/DL (8.5-10.1); CARBON DIOXIDE 28 MMOL/L (21-32); CHLORIDE 106 MMOL/L (98-107); PHOSPHORUS 3.2 MG/DL (2.5-4.9); POTASSIUM 4.2 MMOL/L (3.5-5.1); SODIUM 142 MMOL/L (136-145)
[2017-10-16 11:03] VITALS: BP 130/72
[2017-10-16 12:07] VITALS: BP 121/71
--- NOTE | 2017-10-16 12:37 | Neurology Progress Note ---
Interim History Interim History ROS Limited/Unobtainable: No Objective Physical Exam Last Vital Signs Date Time Temp Pulse Resp B/P (MAP) Pulse Ox O2 Delivery O2 Flow Rate FiO2 10/16/17 12:07 97.2 62 18 121/71 98 Room Air 97.2 10/16/17 06:47 21 Laboratory Tests Test 10/15/17 19:30 10/16/17 07:40 Troponin I 0.000 ng/mL (0.000-0.056) White Blood Count 7.2 K/UL (4.8-10.8) Red Blood Count 3.79 M/UL (4.20-5.40) L Hemoglobin 11.7 G/DL (12.0-16.0) L Hematocrit 35.1 % (37.0-47.0) L Mean Corpuscular Volume 93 FL (80-99) Mean Corpuscular Hemoglobin 31.0 PG (27.0-31.0) Mean Corpuscular Hemoglobin Concent 33.4 G/DL (32.0-36.0) Red Cell Distribution Width 11.9 % (11.6-14.8) Platelet Count 218 K/UL (150-450) Mean Platelet Volume 9.7 FL (6.5-10.1) Neutrophils (%) (Auto) 60.4 % (45.0-75.0) Lymphocytes (%) (Auto) 29.7 % (20.0-45.0) Monocytes (%) (Auto) 6.6 % (1.0-10.0) Eosinophils (%) (Auto) 2.5 % (0.0-3.0) Basophils (%) (Auto) 0.8 % (0.0-2.0) Sodium Level 142 MMOL/L (136-145) Potassium Level 4.2 MMOL/L (3.5-5.1) Chloride Level 106 MMOL/L (98-107) Carbon Dioxide Level 28 MMOL/L (21-32) Anion Gap 8 mmol/L (5-15) Blood Urea Nitrogen 23 mg/dL (7-18) H Creatinine 1.0 MG/DL (0.55-1.30) Estimat Glomerular Filtration Rate mL/min (>60) Glucose Level 140 MG/DL (74-106) H Calcium Level 9.9 MG/DL (8.5-10.1) Phosphorus Level 3.2 MG/DL (2.5-4.9) Magnesium Level 1.8 MG/DL (1.8-2.4) Total Bilirubin 0.4 MG/DL (0.2-1.0) Aspartate Amino Transf (AST/SGOT) 19 U/L (15-37) Alanine Aminotransferase (ALT/SGPT) 21 U/L (12-78) Alkaline Phosphatase 54 U/L (46-116) Total Protein 6.8 G/DL (6.4-8.2) Albumin 3.3 G/DL (3.4-5.0) L Globulin 3.5 g/dL Albumin/Globulin Ratio 0.9 (1.0-2.7) L Impression/Recommendations Recommendations # [id number] PATRICA BRICENO Oct 16, 2017 12:37
[2017-10-16] MEDS: cefTRIAXone 1 GM in NS 55 ML IVPB SCH (12:55)
--- NOTE | 2017-10-16 15:15 | Pulmonology Progress Note ---
Assessment/Plan Problems: (1) UTI (urinary tract infection) (2) Alzheimer's dementia (3) ACS (acute coronary syndrome) Assessment/Plan check urine cultures echo reviewed cardio consult appreciated neuro consult appreciated dc with close f/u with the primary Subjective ROS Limited/Unobtainable: No Constitutional: Reports: no symptoms HEENT: Repors: no symptoms Respiratory: Reports: no symptoms Allergies: Coded Allergies: No Known Allergies (Unverified , 10/13/17) Objective Last 24 Hour Vital Signs Date Time Temp Pulse Resp B/P (MAP) Pulse Ox O2 Delivery O2 Flow Rate FiO2 10/16/17 12:07 97.2 62 18 121/71 98 Room Air 97.2 10/16/17 11:43 60 10/16/17 11:03 97.2 60 22 130/72 98 Room Air 97.2 10/16/17 08:02 64 133/59 10/16/17 08:02 64 133/59 10/16/17 07:41 66 10/16/17 06:47 60 16 Room Air 21 10/16/17 04:00 97.2 60 22 128/68 98 Room Air 97.2 10/16/17 04:00 62 10/16/17 00:00 70 10/16/17 00:00 97.5 70 18 140/70 98 Room Air 97.5 10/15/17 21:28 70 142/72 10/15/17 20:15 61 18 Room Air 21 10/15/17 20:00 68 10/15/17 20:00 97.8 60 20 142/72 98 Room Air 97.8 10/15/17 16:00 69 10/15/17 16:00 98.6 61 18 134/55 98 Room Air 98.6 Intake and Output 10/15/17 10/16/17 19:00 07:00 Intake Total 480 ml Balance 480 ml Intake Oral 240 ml Other 240 ml # Voids 3 # Bowel Movements 1 1 Objective General Appearance: WD/WN, Lines, tubes and drains: peripheral HEENT: normocephalic, atraumatic Neck: non-tender, normal alignment, supple Respiratory/Chest: chest wall non-tender, lungs clear, normal breath sounds Breasts: no masses Cardiovascular/Chest: normal peripheral pulses, normal rate Abdomen: normal bowel sounds, non tender Genitourinary/Rectal: normal genital exam, normal rectal exam Extremities: normal range of motion, non-tender Skin Exam: normal pigmentation 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 Complete 10/13/17 17:55 Urine,Clean Catch Urine Culture - Preliminary Gram Negative Bacillus 1 Resulted 10/13/17 20:00 Rectum VRE Culture - Final Enterococcus Faecalis - Vre Complete Laboratory Tests 10/15/17 19:30: Troponin I 0.000 10/16/17 07:40: White Blood Count 7.2, Red Blood Count 3.79L, Hemoglobin 11.7L, Hematocrit 35.1L , Mean Corpuscular Volume 93, Mean Corpuscular Hemoglobin 31.0, Mean Corpuscular Hemoglobin Concent 33.4, Red Cell Distribution Width 11.9, Platelet Count 218, Mean Platelet Volume 9.7, Neutrophils (%) (Auto) 60.4, Lymphocytes (% ) (Auto) 29.7, Monocytes (%) (Auto) 6.6, Eosinophils (%) (Auto) 2.5, Basophils ( %) (Auto) 0.8, Sodium Level 142, Potassium Level 4.2, Chloride Level 106, Carbon Dioxide Level 28, Anion Gap 8, Blood Urea Nitrogen 23H, Creatinine 1.0, Estimat Glomerular Filtration Rate , Glucose Level 140H, Calcium Level 9.9, Phosphorus Level 3.2, Magnesium Level 1.8, Total Bilirubin 0.4, Aspartate Amino Transf (AST/SGOT) 19, Alanine Aminotransferase (ALT/SGPT) 21, Alkaline Phosphatase 54, Total Protein 6.8, Albumin 3.3L, Globulin 3.5, Albumin/Globulin Ratio 0.9L Current Medications Medications (Trade) Dose Ordered Sig/Joel Route PRN Reason Start Time Stop Time Status Last Admin Dose Admin Acetaminophen (Tylenol) 650 mg Q4H PRN ORAL FEVER 10/13/17 19:15 11/12/17 19:14 Albuterol/ Ipratropium (Albuterol/ Ipratropium) 3 ml EVERY 4 HOURS PRN HHN Shortness of Breath 10/13/17 19:15 10/18/17 19:14 Amlodipine Besylate (Norvasc) 5 mg Q12HR ORAL 10/13/17 21:00 11/12/17 20:59 10/16/17 08:02 Aspirin (ASA) 162 mg DAILY ORAL 10/14/17 09:00 11/13/17 08:59 10/16/17 08:01 Ceftriaxone Sodium 1 gm/ Sodium Chloride 55 ml @ 110 mls/hr Q24H IVPB 10/14/17 14:00 10/21/17 13:59 10/16/17 12:55 Dextrose (Dextrose 50%) STAT PRN IV Hypoglycemia 10/13/17 19:15 11/12/17 19:14 Diltiazem HCl (Cardizem) 10 mg EVERY HOUR PRN IV heart rate more than 120, 10/13/17 19:15 11/12/17 19:14 Enalaprilat (Vasotec) 2.5 mg EVERY 6 HOURS PRN IV sbp more than 160 10/13/17 19:15 11/12/17 19:14 Heparin Sodium (Porcine) (Heparin 5000 units/ml) 5,000 units EVERY 8 HOURS SUBQ 10/13/17 22:00 11/12/17 21:59 10/16/17 12:58 Insulin Aspart (NovoLOG) BEFORE MEALS AND HS SUBQ 10/13/17 21:00 11/12/17 20:59 10/16/17 11:17 Ketorolac Tromethamine (Toradol 30mg) 30 mg Q6HR PRN IV moderate pain ( 4-6) 10/13/17 19:15 10/18/17 19:14 Levofloxacin 50 ml @ 50 mls/hr Q24H IVPB 10/16/17 14:00 10/23/17 13:59 10/15/17 16:11 Metoprolol Succinate (Toprol XL) 50 mg DAILY ORAL 10/14/17 09:00 11/13/17 08:59 10/16/17 08:02 Morphine Sulfate (Morphine Sulfate) 2 mg EVERY 4 HOURS PRN IVP severe Pain (Pain Scale 7-10) 10/13/17 19:15 10/20/17 19:14 10/15/17 07:18 Nitroglycerin (Ntg) 0.4 mg Q5MIN X 3 DOSES PRN SL Prn Chest Pain 10/13/17 19:30 11/12/17 19:29 Ondansetron HCl (Zofran) 4 mg Q6H PRN IVP Nausea & Vomiting 10/13/17 19:15 11/12/17 19:14 Pantoprazole (Protonix) 40 mg DAILY ORAL 10/14/17 09:00 11/13/17 08:59 10/16/17 08:01 Polyethylene Glycol (Miralax) 17 gm DAILYPRN PRN ORAL Constipation 10/13/17 19:15 11/12/17 19:14 Temazepam (Restoril) 15 mg HSPRN PRN ORAL Insomnia 10/13/17 19:15 10/20/17 19:14 BRITTANY IRIZARRY Oct 16, 2017 15:15
[2017-10-16 16:00] VITALS: BP 112/55
--- NOTE | 2017-10-16 20:00 | Consultation ---
DATE OF CONSULTATION: 10/16/2017 NEUROLOGICAL CONSULTATION CONSULTING PHYSICIAN: Harjinder Vidales M.D. REQUESTING PHYSICIAN: Shell Lloyd M.D. HISTORY OF PRESENT ILLNESS: This is a 77-year-old female seen in neurological consultation to evaluate persistent sensation of grogginess, fogginess in the right side of the head which she developed approximately a year ago and since then intermittently appearing including in the last few days. The patient notified me that she complained of fogginess in last few days while being admitted to [facility]. There was no explanation of symptoms given. The patient was brought to this facility after she developed chest pain, her usual treatment is at [facility] and oncology rn is Dr. Hai Albarran. The patient now informs me that she would like to continue her workup at [facility]. The patient lives at [facility] where she developed chest pain, but pain was also radiating to right side of the lower back region. In addition to being "foggy/groggy" in the right side of the head, the patient explained this as "my brain seems not functioning properly." The patient now recalled that she had a previous CT of the brain done a year and half ago, it was negative. Following current admission, her vital signs included blood pressure 220/110, respirations 16, heart rate of 80, she was afebrile. EKG, atrial , no acute ischemic changes. Chest x-ray, no acute disease, pacemaker was in place. Her 2D echocardiogram was obtained revealing ejection fraction of 55% to 60%, no mural thrombi were noted. lab work included normal CBC, coagulation panel, urinalysis unremarkable, chemistry panel with glucose 145, calcium 10.5, otherwise unremarkable. Normal TSH, lipid panel. Normal troponin. PAST MEDICAL HISTORY: The patient has history of insulin-dependent diabetes mellitus, COPD, diabetic polyneuropathy, she has a pacemaker in place, history of bradyarrhythmia, she has mild multiinfarct dementia, balance abnormality, status post nephrectomy due to nephrolithiasis. ALLERGIES: Cat, pollen. MEDICATIONS: The treatment prior to admission included alogliptin, Ativan, amlodipine, aspirin, atorvastatin, insulin, meloxicam, Namenda, metoprolol, vitamin B12 supplement. FAMILY HISTORY: Noncontributory. REVIEW OF SYMPTOMS: Fogginess and grogginess in the right side of the head which makes her very anxious concerned issue with her "health issues." Mild pressure in her chest, now subsiding. Still pain in her right side of the lower back region. Overall not feeling well. No palpitation. No respiratory problems. No abdominal pain or discomfort. No urinary or bowel incontinence. PHYSICAL EXAMINATION: GENERAL: A well-developed, well-nourished female, lying comfortably in bed watching TV. VITAL SIGNS: At this time, stable. Blood pressure 133/59, afebrile. HEENT: Head normocephalic. No evidence of trauma. Eyes, ears, and throat are clear. NECK: Supple. No meningeal signs. MUSCULOSKELETAL: Unremarkable. There are no deformities. Peripheral pulses 1+ and symmetric. MENTAL STATUS: The patient is fully alert and oriented x3. Speech is fluent. The patient indicated that she has "mild dementia." She appears somewhat anxious, but denied having depression or anxiety. CRANIAL NERVE II: Pupils both responding to light and accommodation. Extraocular movements intact. No nystagmus. CRANIAL NERVE V: Normal corneal responses. CRANIAL NERVE VII: No facial asymmetry. CRANIAL NERVE VIII: Normal hearing. CRANIAL NERVES IX THROUGH XII: Within normal limits. MOTOR EXAMINATION: Normal muscle tone. Strength 5/5 in all extremities. No involuntary movement. Deep tendon reflexes 1+, symmetric with downgoing toes on both sides. SENSORY EXAMINATION: Reduced pin sensation in both feet. IMPRESSION: 1. Mild multi-infarct dementia. 2. Anxiety syndrome. 3. Diabetic polyneuropathy. 4. Insulin-dependent diabetes mellitus. 5. Pacemaker in place. 6. Hypertension, poor control with mild encephalopathy on admission. RECOMMENDATION: 1. Get CT of the brain without contrast. 2. PT, OT, mobility protocol. 3. Consider adding Lexapro 10 mg daily, continue with aspirin and statins. The patient at this time refusing to have radiological study or changing her treatment until she is going to see by her family physician, Dr. Albarran. Thank you for allowing me to see this interesting patient in neurological consultation. Harjinder Vidales M.D. DR: Indigo JOB#: [id number] CC:
[2017-10-19] MEDS ORDERED: CIPRO500 MG PO (09:21)
--- NOTE | 2017-10-19 09:27 | Discharge Summary ---
Discharge Summary Hospital Course Date of Admission Oct 13, 2017 at 17:45 Date of Discharge Oct 16, 2017 at 18:37 Admitting Diagnosis ACUTE CORONARY SYNDROME HPI Alexi Levine is a 77 year old female who was admitted on Oct 13, 2017 at 17:45 for Acute Coronary Syndrome Hospital Course dc summary #[id number] Discharge Medications New Medications: Ciprofloxacin* (Cipro*) 500 Mg Tablet 500 MG PO BID, #6 TAB Continued Medications: Alprazolam (Alprazolam) 0.025 Gm Powder 0.025 GM MC, GM Amlodipine Besylate* (Amlodipine Besylate*) 5 Mg Tablet 5 MG ORAL BID, TAB Memantine Hcl (Namenda Xr) 28 Mg Cap.spr.24 28 MG PO DAILY, CAP Metoprolol Succinate* (Metoprolol Succinate*) 50 Mg Tab.er.24h 50 MG ORAL DAILY, TAB Discharge Condition Upon Discharge: stable Discharge Disposition Patient was discharged to [facility] assisted living Discharge Diagnoses: Javier (Ever)Adrienne NP Oct 19, 2017 09:27
--- NOTE | 2017-10-19 23:00 | Discharge Summary 2 SIG ---
DATE OF ADMISSION: 10/13/2017 DATE OF DISCHARGE: 10/16/2017 REASON FOR ADMISSION: 77 years old female with past medical history of diabetes, hypertension, dementia, and pacemaker, was brought from the assisted living with complaint of chest pain. Upon evaluation in the emergency department, the patient was noted to had elevated blood pressure - 220/110. Stable pulse oximetry on room air and stable heart rate. EKG showed pacing rhythm. Troponin was negative. No leukocytosis. Stable hemoglobin and hematocrit. Electrolytes stable. Urinalysis with evidence of UTI. The patient admitted with diagnoses of chest pain, rule out acute coronary syndrome, urinary tract infection, hypertensive urgency, diabetes, pacemaker, and dementia. HOSPITAL COURSE: The patient admitted to the telemetry floor. Cardiology and Neurology consults were requested. Serial troponin were negative. EKG with pacing rhythm. Echocardiogram revealed preserved ejection fraction of 55% to 60% and right ventricular systolic pressure of 28. No evidence of wall motion abnormality. Venous duplex of bilateral lower extremities was negative for acute DVT. Chest x-ray revealed no acute cardiopulmonary pathology. Superintendent Sanitation closely follwoed. He concluded that chest pain was reproducible on palpation of chest wall. Chest pain was likely musculoskeletal chest pain. Recommended nonsteroid anti-inflammatory medication for pain control. Neurologist seen and evaluated the patient. Neurologist recommended to have CT of the head. However, the patient declined to have any test until discussed with the primary care provider. Aspirin was added to existing regimen. Statin was hold at this time. Lipid panel within normal limits. The patient was working with physical and occupational therapists. Urine culture revealed E. coli and Enterobacter. The patient was on IV antibiotic, which switched to oral prior to discharge, and to be continued for additional three days. Blood pressure was managed with calcium channel raman and beta-raman. Antihypertensive regimen was optimized. Blood pressure stabilized, stable prior to discharge. Blood sugar was stable with current regimen. DVT prophylaxis provided. The patient was stable for discharge. FINAL DIAGNOSES: 1. Musculoskeletal chest pain. 2. Hypertensive urgency, resolved. 3. Urinary tract infection with Escherichia coli and Enterobacter. 4. Diabetes mellitus. 5. Diabetic polyneuropathy. 6. Pacemaker. 7. Mild multi-infarct dementia. DISCHARGE MEDICATIONS: See medication reconciliation list. DISCHARGE INSTRUCTIONS: The patient discharged to assisted living. Follow up with primary care provider. Shell Lloyd M.D. Adrienne PughSocorro walker DR: Delia JOB#: [id number] CC: DOTTIE
== END 2017-10-16 18:37 | disposition home or self-care (01) | DRG 313 ==
LOC: EDBD 17:01 → EMR 17:31 → 2E 17:45 → EDBEDREQ 18:58 → 2E 10-14 16:55
DX: R07.89 Other chest pain (principal); E11.42 Type 2 diabetes mellitus with diabetic polyneuropathy; N39.0 Urinary tract infection, site not specified; G30.9 Alzheimer's disease, unspecified; F02.80 Dementia in other diseases classified elsewhere, unspecified severity, without behavioral disturbance, psychotic disturbance, mood disturbance, and anxiety; B96.20 Unspecified Escherichia coli [E. coli] as the cause of diseases classified elsewhere; B96.89 Other specified bacterial agents as the cause of diseases classified elsewhere; Z95.0 Presence of cardiac pacemaker; Z79.4 Long term (current) use of insulin; F41.9 Anxiety disorder, unspecified; I16.0 Hypertensive urgency; F01.50 Vascular dementia, unspecified severity, without behavioral disturbance, psychotic disturbance, mood disturbance, and anxiety
CPT/HCPCS: 36415; 71045; 80053; 80061; 81003; 82550; 82553; 82962; 83735; 83880; 84100; 84443; 84484; 85025; 85610; 85730; 86140; 87081; 87086; 87181; 93005; 93306; 93970; 94664; 99285; J1815